=== PATIENT | female | born 1990 | race Caucasian/White ===

== ENCOUNTER 2017-07-04 15:04 | Emergency (ER) | payer OTHER, BC ==
[~2017-07-04] VITALS: Wt 87.1 kg
[~2017-07-04 15:04] MED LIST: BIRTH CONTROL1 EAC1 PO; LOMOTIL 0.025 M1 TA1 PO; ZOFRAN ODT4 MG SL
[2017-07-04 15:16] VITALS: BP 130/97
== END 2017-07-04 15:33 | disposition home or self-care (01) ==
LOC: ED 15:04
DX: M79.645 Pain in left finger(s) (principal); R03.0 Elevated blood-pressure reading, without diagnosis of hypertension

== ENCOUNTER → 2022-12-14 | Outpatient (CLI) | payer OTHER ==
[2022-12-16 13:06] LABS: TB1 Ag VALUE 0.02 IU/mL (.)
== END | disposition home or self-care (01) ==
LOC: LAB 12:31
PROVIDERS: ATTEND Specialist
DX: R53.83 Other fatigue (principal)

== ENCOUNTER → 2022-12-18 | Outpatient (CLI) | payer OTHER ==
[2022-12-18 18:00] LABS: BASO % 0.3 % (0.0-1.0); EOS % 0.4 % (1.0-4.0); HEMATOCRIT 38.7 % (37.0-47.0); LYMPH # 2.7 10*3/uL (1.3-4.4); LYMPH % 29.3 % (27.0-41.0); MEAN CORPUSCULAR HGB 27.3 pg (27.0-31.0); MEAN CORPUSCULAR HGB CONC 31.8 g/dl (33.0-37.0); MEAN PLATELET VOLUME 9.3 fl (9.6-12.3); MONO # 0.6 10*3/uL (0.1-1.0); MONO % 6.7 % (3.0-9.0); NEUT # 5.8 10*3/uL (2.3-7.9); PLATELET COUNT AUTOMATED 377 10*3/uL (130-400); RED CELL DISTRI WIDTH 14.6 % (0-14.5); WHITE BLOOD COUNT 9.3 10*3/uL (4.8-10.8)
[2022-12-18 18:27] LABS: ALKALINE PHOSPHATASE 66 U/L (46-116); BUN 11 mg/dl (9-23); CHLORIDE 102 mmol/L (98-107); POTASSIUM 4.1 mmol/L (3.4-5.1); SGPT/ALT 13 U/L (10-49); TOTAL PROTEIN 7.6 gm/dL (6.0-8.0)
[2022-12-19 12:07] LABS: HBSAG Negative (Negative); HEP B CORE AB, IGM Negative (Negative); HEPATITIS C ANTIBODY Non Reactive (Non Reactive)
== END | disposition home or self-care (01) ==
LOC: LAB 15:23
PROVIDERS: ATTEND Specialist
DX: R53.83 Other fatigue (principal)

== ENCOUNTER 2025-04-20 20:57 | Emergency (ER) | payer OTHER ==
[~2025-04-20] VITALS: Ht 167.6 cm; Wt 72.6 kg
[2025-04-20 21:08] VITALS: BP 134/87
[2025-04-20] MEDS ORDERED: Bacitracin Zinc 14 GM TUBE T ONE (21:30)
[2025-04-20] MEDS ORDERED: Tdap Vaccine 0.5 ML SYR (Adult Vaccine) IM ONE (21:30)
[2025-04-20] MEDS ORDERED: Lidocaine Hydrochloride 2% 10 ML AMP SC ONE (21:30)
[2025-04-20] MEDS ORDERED: CEPHALEXIN500 M1 PO (22:30)
[2025-04-20] MEDS ORDERED: CEPHALEXIN 500 MG CAP PO ONE (22:35)
[2025-04-20] MEDS ORDERED: DERMABOND 1 EA APPL T ONE (22:55)
== END 2025-04-20 22:55 | disposition home or self-care (01) ==
LOC: ED 20:57
DX: S61.012A Laceration without foreign body of left thumb without damage to nail, initial encounter (principal); Z91.018 Allergy to other foods; W45.8XXA Other foreign body or object entering through skin, initial encounter; Y93.89 Activity, other specified; Y92.89 Other specified places as the place of occurrence of the external cause; Y99.8 Other external cause status